=== PATIENT | female | born 1980 | race Caucasian/White ===

== ENCOUNTER 2021-09-27 03:25 | Inpatient (IN) | payer MEDICAID, OTHER, SELFPAY ==
[2021-09-27] VITALS (10 sets, daily range): BP systolic 100–125; BP diastolic 59–75; PULSE 52–78; RESP 16–18; TEMP 36.1–37.3; O2SAT 96–98; BMI 22.0
--- NOTE | ~2021-09-27 | CT_ITS ---
EXAMINATION: CT ABDOMEN AND PELVIS WITH CONTRAST CLINICAL INFORMATION: Lower abdominal pain. Nausea. COMPARISON: None TECHNIQUE: Multidetector volumetric images were obtained from the superior aspect of the liver through the pubic symphysis following administration 85 mL of Omnipaque 350 intravenous contrast. Sagittal and coronal reformatted images were obtained on the technologist's workstation. Oral contrast: No This CT examination was performed using dose optimization techniques as appropriate, variously including the following: *Automated exposure control *Adjustment of mA and/or kV according to patient size (this includes techniques or standardized protocols for targeted exams where dose is matched to indication/reason for exam; i.e. extremities or head) *Use of iterative reconstruction technique DLP: 467 mGy-cm FINDINGS: LUNG BASES: The visualized lung bases are unremarkable. LIVER, GALLBLADDER, AND BILIARY TREE: The liver is normal in size, shape, and attenuation. Subcentimeter cyst in the medial segment. A suspicious liver lesion or biliary ductal dilatation is present. There is focal thickening of the gallbladder fundus selective of adenomyomatosis. Cholelithiasis. PANCREAS: Unremarkable. SPLEEN: Unremarkable. ADRENAL GLANDS: Unremarkable. KIDNEYS AND URETERS: The kidneys are normal in size, shape, and attenuation. No hydronephrosis, hydroureter, or calculi seen. No perinephric stranding. BLADDER: Unremarkable. GASTROINTESTINAL TRACT: The appendix is dilated to 1.1 cm, fluid-filled and hyperemic, compatible with appendicitis. No evidence of rupture. Stomach, small and large bowel are unremarkable. ABDOMINAL WALL: No significant hernia is appreciated. LYMPH NODES: Normal. VASCULAR: Unremarkable. PELVIC VISCERA: IUD present within the uterus. Ovaries unremarkable. OSSEOUS STRUCTURES: No acute or suspicious osseous abnormalities. CT/CT abdomen pelvis w con IMPRESSION: * Acute uncomplicated appendicitis. * Cholelithiasis and adenomyomatosis. Fleischner guidelines were followed.
--- NOTE | 2021-09-27 03:40 | ED.ABDPAIN ---
HPI - Abdominal Pain General Chief Complaint: Abdominal Pain Stated Complaint: stomach pain Time Seen by Provider: 09/27/21 03:39 Source: patient Mode of arrival: ambulatory Limitations: no limitations History of Present Illness MD elicited complaint: abdominal pain Pertinent past history: none Onset (ago): hour(s) (5) Pain Consistency: constant Location: suprapubic Severity: moderate Quality: cramping Radiation: none Migration to: no migration Exacerbating factors: movement Relieving factors: nothing Associated symptoms: nausea Related Data Allergies Allergy/AdvReac Type Severity Reaction Status Date / Time No Known Allergies Allergy Verified 09/27/21 03:37 Review of Systems Review of Systems Constitutional : No Weight loss, No Fever, No Chills ENT/Mouth : No sore throat, No Rhinorrhea Eyes: No Swelling, No Redness Cardiovascular : No Chest Pain, No SOB, NoEdema Respiratory : No Cough, No Sputum, No Wheezing Gastrointestinal : Positive Nausea, no Vomiting, no Diarrhea, positive abdominal Pain, No Hematochezia, No Melena Genitourinary : No Dysuria, No Urinary Frequency, No Hematuria, No Urgency Musculoskeletal : No joint pain, No Myalgias, No Joint Swelling Skin : No Skin Lesions, No rash Neuro : No Weakness, No Numbness, No Dizziness, No Headache Psych : No Anxiety/Panic, No Depression Heme/Lymph: No Bruising, No Lymphadenopathy Endocrine : No Polyuria, No Polydipsia All other systems reviewed and are negative. [facility] Past Medical History Attestation statement: The following information was validated with the patient. Medical History No pertinent past medical history Social History Social History (Updated 09/27/21 @ 03:54 by Nadira Vance DO) Patient Tobacco Use Status: Never used Tobacco Advance Directives: No Advance Directives Information Provided: No Physical Exam ED Vital Signs: Vital Signs - 24 hr 09/27/21 03:35 Temperature 99.1 F Pulse Rate 78 Respiratory Rate 16 Blood Pressure 125/67 Pulse Oximetry 98 Oxygen Delivery Method Room Air BMI result Body Mass Index 22.0 Appearance: Alert. Oriented X3. No acute distress. Eyes: Pupils equal, round and reactive to light. ENT: Pharynx normal. Neck: Normal inspection. Neck supple. CVS: Normal heart rate and rhythm. Pulses normal. Respiratory: No respiratory distress. Breath sounds normal. Abdomen: Soft and moderate suprapubic ttp no rebound Skin: Skin warm and dry. Normal skin color. Normal skin turgor. Extremities: No lower extremity edema. No calf ttp Neuro: Oriented X 3. No motor deficit. No sensory deficit. Course Course Course Narrative: abdominal pain much better per patient + appendicitis normal VS, WBC less than 12k will start on zosyn and notify surgery - Dr. Kern to evaluate patient MDM - Abdominal Pain MDM Narrative Medical decision making narrative: 41 yo female no sig PMH does have IUD, had prior ovarian cyst but no rupture comes in with c/o lower abdominal pain that started out severe now is lingering she has some mild nausea but no other GI/ symptoms - at this time possible renal colic, ruptured ovarian cyst, appendicitis. Will obtain basic labs, hydrate, IV toradol for pain, CT scan for renal colic, appendicitis, ruptured cyst. Dispo per results and findings. Lab Data Result diagrams: 09/27/21 03:54 09/27/21 03:54 Labs: Lab Results 09/27/21 09/27/21 09/27/21 Range/Units 03:54 03:54 04:29 WBC 11.2 H (4.8-10.8) X10*3/uL RBC 4.14 L (4.20-5.50) X10*6/uL Hgb 12.5 (12.0-16.0) g/dl Hct 36.3 L (37.0-47.0) % MCV 87.7 (80.0-98.0) fL MCH 30.2 (27.0-33.0) pg MCHC 34.4 (31.0-35.0) g/dl RDW 12.4 (11.0-16.0) % Plt Count 237 (160-400) X10*3/uL MPV 8.8 L (9.4-12.3) fL Immature Gran % (Auto) 0.3 (0.0-0.4) % Neut % (Auto) 78.9 H (45-73) % Lymph % (Auto) 15.2 L (20-40) % [place] % (Auto) 5.2 (2-11) % Eos % (Auto) 0.2 (0-4) % Baso % (Auto) 0.2 (0-2) % Lymph # (Auto) 1.7 (1.2-4.9) X10*3/uL [place] # (Auto) 0.6 (0.1-1.2) X10*3/uL Eos # (Auto) 0.0 (0.0-0.4) X10*3/uL Baso # (Auto) 0.0 (0.0-0.2) X10*3/uL Abs Immat Gran (auto) 0.03 (0.00-0.03) X10*3/uL Absolute Neuts (auto) 8.8 H (2.0-8.3) x10*3/uL Absolute Nucleated RBC 0.000 (0.0-0.012) X10*3/uL Nucleated RBC % (auto) 0.0 (0.0-0.2) /100WBC Sodium 137 (135-145) mmol/L Potassium 3.7 (3.3-5.1) mmol/L Chloride 105 (96-108) mmol/L Carbon Dioxide 22 (22-29) mmol/L Anion Gap 14 (12-20) BUN 11 (9-16) mg/dL Creatinine 0.76 (0.5-1.4) mg/dL Estim Creat Clear Calc 90.3 Estimated GFR > 60 Random Glucose 114 (60-115) mg/dL Calcium 8.7 (8.4-10.2) mg/dL Magnesium 1.9 (1.6-2.6) mg/dL Total Bilirubin 0.6 (0.0-1.0) mg/dL Direct Bilirubin 0.3 (0.0-0.5) mg/dL AST 14 (5-31) U/L ALT 23 (0-31) U/L Alkaline Phosphatase 69 (39-117) U/L Total Protein 7.1 (6.5-8.0) g/dL Albumin 4.4 (3.5-5.0) g/dL Lipase 18 (8-78) U/L Urine Color Urine Appearance Urine pH (5.0-8.0) Ur Specific [place] (1.005-1.025) Urine Protein (NEG-TRACE) MG/DL Urine Glucose (UA) (NEG) MG/DL Urine Ketones (NEG) MG/DL Urine Blood (NEG) Urine Nitrite (NEG) Ur Leukocyte Esterase (NEG) Urine RBC (0) /HPF Urine WBC (0-4) /HPF Ur Squamous Epith Cells /LPF Urine Bacteria /LPF Urine Mucus /LPF Urine Test (NEGATIVE) COVID-19 (BIBI) Negative (Negative) COVID-19 Clin Com See Note 09/27/21 09/27/21 Range/Units 04:29 04:29 WBC (4.8-10.8) X10*3/uL RBC (4.20-5.50) X10*6/uL Hgb (12.0-16.0) g/dl Hct (37.0-47.0) % MCV (80.0-98.0) fL MCH (27.0-33.0) pg MCHC (31.0-35.0) g/dl RDW (11.0-16.0) % Plt Count (160-400) X10*3/uL MPV (9.4-12.3) fL Immature Gran % (Auto) (0.0-0.4) % Neut % (Auto) (45-73) % Lymph % (Auto) (20-40) % [place] % (Auto) (2-11) % Eos % (Auto) (0-4) % Baso % (Auto) (0-2) % Lymph # (Auto) (1.2-4.9) X10*3/uL [place] # (Auto) (0.1-1.2) X10*3/uL Eos # (Auto) (0.0-0.4) X10*3/uL Baso # (Auto) (0.0-0.2) X10*3/uL Abs Immat Gran (auto) (0.00-0.03) X10*3/uL Absolute Neuts (auto) (2.0-8.3) x10*3/uL Absolute Nucleated RBC (0.0-0.012) X10*3/uL Nucleated RBC % (auto) (0.0-0.2) /100WBC Sodium (135-145) mmol/L Potassium (3.3-5.1) mmol/L Chloride (96-108) mmol/L Carbon Dioxide (22-29) mmol/L Anion Gap (12-20) BUN (9-16) mg/dL Creatinine (0.5-1.4) mg/dL Estim Creat Clear Calc Estimated GFR Random Glucose (60-115) mg/dL Calcium (8.4-10.2) mg/dL Magnesium (1.6-2.6) mg/dL Total Bilirubin (0.0-1.0) mg/dL Direct Bilirubin (0.0-0.5) mg/dL AST (5-31) U/L ALT (0-31) U/L Alkaline Phosphatase (39-117) U/L Total Protein (6.5-8.0) g/dL Albumin (3.5-5.0) g/dL Lipase (8-78) U/L Urine Color YELLOW Urine Appearance HAZY Urine pH 6.5 (5.0-8.0) Ur Specific [place] 1.020 (1.005-1.025) Urine Protein NEG (NEG-TRACE) MG/DL Urine Glucose (UA) NEG (NEG) MG/DL Urine Ketones NEG (NEG) MG/DL Urine Blood TRACE (NEG) Urine Nitrite NEG (NEG) Ur Leukocyte Esterase NEG (NEG) Urine RBC 1-4 (0) /HPF Urine WBC 0 (0-4) /HPF Ur Squamous Epith Cells 2+ /LPF Urine Bacteria TRACE /LPF Urine Mucus 2+ /LPF Urine Test NEGATIVE (NEGATIVE) COVID-19 (BIBI) (Negative) COVID-19 Clin Com Discharge Plan Discharge Clinical Impression: Abdominal pain, Acute appendicitis Patient Disposition: Admitted As Inpatient
[2021-09-27] MEDS: Ketorolac Tromethamine 15 MG/ML VIAL 30 MG IVPUSH (04:07)
[2021-09-27] MEDS: ondansetron HCL 4 MG/2 ML VIAL IVPUSH (04:07)
[2021-09-27] MEDS: Lactated Ringers 1,000 ML 999 ML IV (04:08)
[2021-09-27 04:09] LABS: MANUAL DIFF FLAG NO
[2021-09-27 04:10] LABS: Basophils Percent Auto 0.2 % (0-2); Eosinophils Percent Auto 0.2 % (0-4); Hematocrit 36.3 % (37.0-47.0); Hemoglobin 12.5 g/dl (12.0-16.0); Imm Gran Abs Auto 0.03 X10*3/uL (0.00-0.03); Imm Gran Pct Auto 0.3 % (0.0-0.4); Lymphocytes Absolute Auto 1.7 X10*3/uL (1.2-4.9); Lymphocytes Percent Auto 15.2 % (20-40); Mean Corpuscular HGB Conc 34.4 g/dl (31.0-35.0); Mean Corpuscular Hemoglobin 30.2 pg (27.0-33.0); Mean Corpuscular Volume 87.7 fL (80.0-98.0); Mean Platelet Volume 8.8 fL (9.4-12.3); Monocytes Absolute Auto 0.6 X10*3/uL (0.1-1.2); Monocytes Percent Auto 5.2 % (2-11); Neutrophils Absolute Auto 8.8 x10*3/uL (2.0-8.3); Neutrophils Percent Auto 78.9 % (45-73); Platelet Count 237 X10*3/uL (160-400); Red Blood Count 4.14 X10*6/uL (4.20-5.50); Red Cell Distribution Width 12.4 % (11.0-16.0); White Blood Count 11.2 X10*3/uL (4.8-10.8)
[2021-09-27 04:29] LABS: Alanine Aminotransferase 23 U/L (0-31); Albumin Level 4.4 g/dL (3.5-5.0); Alkaline Phosphatase 69 U/L (39-117); Anion Gap 14 (12-20); Aspartate Amino Transferase 14 U/L (5-31); Bilirubin Direct 0.3 mg/dL (0.0-0.5); Bilirubin Total 0.6 mg/dL (0.0-1.0); Blood Urea Nitrogen 11 mg/dL (9-16); Calcium 8.7 mg/dL (8.4-10.2); Carbon Dioxide 22 mmol/L (22-29); Chloride 105 mmol/L (96-108); Creatinine Clr Calc Pharmacy 90.3; Estimated Glomerular Filt Rate > 60; Glucose Random 114 mg/dL (60-115); Lipase 18 U/L (8-78); Magnesium 1.9 mg/dL (1.6-2.6); Potassium 3.7 mmol/L (3.3-5.1); Sodium 137 mmol/L (135-145); Total Protein 7.1 g/dL (6.5-8.0)
[2021-09-27 04:43] LABS: Appearance Urine HAZY; Color Urine YELLOW; Glucose Urine UA NEG (NEG); Leukocyte Esterase Urine NEG (NEG); Nitrite Urine NEG (NEG); PH 6.5 (5.0-8.0); UACC Culture Trigger NO; Urine Blood TRACE (NEG); Urine Ketones NEG (NEG); Urine Protein NEG (NEG-TRACE)
[2021-09-27 04:44] LABS: UPreg QC Valid YES; Urine Pregnancy NEGATIVE (NEGATIVE)
[2021-09-27 04:51] LABS: Bacteria Urine TRACE /LPF; Mucus Urine 2+ /LPF; Squamous Epithelial Cell Urine 2+ /LPF; WBC Urine 0 /HPF (0-4)
[2021-09-27 04:57] LABS: COVID-19 Test Negative (Negative)
[2021-09-27] MEDS: iohexoL 350 MG/ML 100 ML INFUS..BTL 85 ML IV (05:29)
[2021-09-27] MEDS: Piperacillin Sodium/Tazobactam 3.375 GM in 0.9 % Sodium Chloride 50 ML IV (06:22)
[2021-09-27] MEDS: Lactated Ringers 1,000 ML 100 ML IVCONT (06:30)
--- NOTE | 2021-09-27 08:16 | PM.HPGS ---
History of Present Illness History of Present Illness Date of Service: 10/06/21 Chief complaint: stomach pain Narrative: Franny Barahona is a 41 year old female who came to the ED early this AM because of abdominal pain. She says this started around 8 o'clock last night. She says this has been on the lower abdomen, right more than the left. She denies vomitting but has had nausea. She denies similar previous episodes in the past. She says she still has the same pain now but better after she got IV pain meds. Review of Systems Constitutional: Constitutional: Denies chills and Denies fever(s) Cardiovascular: Cardiovascular: Denies chest pain, Denies dyspnea and Denies dyspnea on exertion Respiratory: Respiratory: Denies cough, Denies dyspnea and Denies dyspnea on exertion Gastrointestinal: Gastrointestinal: Denies hematochezia and Denies change in bowel habits Genitourinary: Genitourinary: Denies hematuria Musculoskeletal: Musculoskeletal: Denies back pain and Denies limited range of motion Neurologic: Denies focal weakness and Denies convulsions Psychiatric: Psychiatric: Denies depression and Denies mood swings [facility] Past Medical History Medical History No pertinent past medical history Social History Social History Household Members: Family and Children Housing: Apartment Do you presently have visiting nurse or other home services: No Patient Tobacco Use Status: Never used Tobacco service: No Current occupational status: unemployed Meds Allergies Allergy/AdvReac Type Severity Reaction Status Date / Time No Known Allergies Allergy Verified 09/27/21 03:37 Active Medications: Current Medications Lactated Ringer's (Lr) 1,000 mls @ 100 mls/hr IVCONT .Q10H THO Last Admin: 09/27/21 06:30 Dose: 100 mls/hr Physical Exam Vital Signs: Vital Signs: Last Vital Signs Temp 98.7 F 09/27/21 06:49 Pulse 52 09/27/21 06:49 Resp 17 09/27/21 06:49 BP 100/59 L 09/27/21 06:49 Pulse Ox 98 09/27/21 06:49 O2 Del Method 09/27/21 06:49 BMI result Body Mass Index 22.0 Const: General: comfortable and no acute distress Orientation/consciousness: patient oriented x3 Neck: Neck: Yes no lymphadenopathy Resp: Auscultation: clear to auscultation bilaterally Cardio: Rhythm: regular rhythm GI: Palpation (GI): Soft to palpation, Tenderness to palpation present (GI) (tender on lower abdomen, R> L) and no guarding Neuro: General: patient oriented x3 Results Results Labs: Short CBC 09/27/21 Range/Units 03:54 WBC 11.2 H (4.8-10.8) X10*3/uL Hgb 12.5 (12.0-16.0) g/dl Hct 36.3 L (37.0-47.0) % Plt Count 237 (160-400) X10*3/uL BMP 09/27/21 03:54 Sodium 137 Potassium 3.7 Chloride 105 Carbon Dioxide 22 BUN 11 Creatinine 0.76 Calcium 8.7 Liver Function 09/27/21 Range/Units 03:54 Total Bilirubin 0.6 (0.0-1.0) mg/dL Direct Bilirubin 0.3 (0.0-0.5) mg/dL AST 14 (5-31) U/L ALT 23 (0-31) U/L Alkaline Phosphatase 69 (39-117) U/L Albumin 4.4 (3.5-5.0) g/dL Urine 09/27/21 09/27/21 Range/Units 04:29 04:29 Urine Color YELLOW Urine Appearance HAZY Urine pH 6.5 (5.0-8.0) Ur Specific [place] 1.020 (1.005-1.025) Urine Protein NEG (NEG-TRACE) MG/DL Urine Glucose (UA) NEG (NEG) MG/DL Urine Test NEGATIVE (NEGATIVE) Additional studies: Laboratory Results WBC 11.2 X10*3/uL (4.8-10.8) H 09/27/21 03:54 RBC 4.14 X10*6/uL (4.20-5.50) L 09/27/21 03:54 Hgb 12.5 g/dl (12.0-16.0) 09/27/21 03:54 Hct 36.3 % (37.0-47.0) L 09/27/21 03:54 MCV 87.7 fL (80.0-98.0) 09/27/21 03:54 MCH 30.2 pg (27.0-33.0) 09/27/21 03:54 MCHC 34.4 g/dl (31.0-35.0) 09/27/21 03:54 RDW 12.4 % (11.0-16.0) 09/27/21 03:54 Plt Count 237 X10*3/uL (160-400) 09/27/21 03:54 MPV 8.8 fL (9.4-12.3) L 09/27/21 03:54 Immature Gran % (Auto) 0.3 % (0.0-0.4) 09/27/21 03:54 Neut % (Auto) 78.9 % (45-73) H 09/27/21 03:54 Lymph % (Auto) 15.2 % (20-40) L 09/27/21 03:54 [place] % (Auto) 5.2 % (2-11) 09/27/21 03:54 Eos % (Auto) 0.2 % (0-4) 09/27/21 03:54 Baso % (Auto) 0.2 % (0-2) 09/27/21 03:54 Lymph # (Auto) 1.7 X10*3/uL (1.2-4.9) 09/27/21 03:54 [place] # (Auto) 0.6 X10*3/uL (0.1-1.2) 09/27/21 03:54 Eos # (Auto) 0.0 X10*3/uL (0.0-0.4) 09/27/21 03:54 Baso # (Auto) 0.0 X10*3/uL (0.0-0.2) 09/27/21 03:54 Abs Immat Gran (auto) 0.03 X10*3/uL (0.00-0.03) 09/27/21 03:54 Absolute Neuts (auto) 8.8 x10*3/uL (2.0-8.3) H 09/27/21 03:54 Absolute Nucleated RBC 0.000 X10*3/uL (0.0-0.012) 09/27/21 03:54 Nucleated RBC % (auto) 0.0 /100WBC (0.0-0.2) 09/27/21 03:54 Sodium 137 mmol/L (135-145) 09/27/21 03:54 Potassium 3.7 mmol/L (3.3-5.1) 09/27/21 03:54 Chloride 105 mmol/L (96-108) 09/27/21 03:54 Carbon Dioxide 22 mmol/L (22-29) 09/27/21 03:54 Anion Gap 14 (12-20) 09/27/21 03:54 BUN 11 mg/dL (9-16) 09/27/21 03:54 Creatinine 0.76 mg/dL (0.5-1.4) 09/27/21 03:54 Estim Creat Clear Calc 90.3 09/27/21 03:54 Estimated GFR > 60 09/27/21 03:54 Random Glucose 114 mg/dL (60-115) 09/27/21 03:54 Calcium 8.7 mg/dL (8.4-10.2) 09/27/21 03:54 Magnesium 1.9 mg/dL (1.6-2.6) 09/27/21 03:54 Total Bilirubin 0.6 mg/dL (0.0-1.0) 09/27/21 03:54 Direct Bilirubin 0.3 mg/dL (0.0-0.5) 09/27/21 03:54 AST 14 U/L (5-31) 09/27/21 03:54 ALT 23 U/L (0-31) 09/27/21 03:54 Alkaline Phosphatase 69 U/L (39-117) 09/27/21 03:54 Total Protein 7.1 g/dL (6.5-8.0) 09/27/21 03:54 Albumin 4.4 g/dL (3.5-5.0) 09/27/21 03:54 Lipase 18 U/L (8-78) 09/27/21 03:54 Urine Color YELLOW 09/27/21 04:29 Urine Appearance HAZY 09/27/21 04:29 Urine pH 6.5 (5.0-8.0) 09/27/21 04:29 Ur Specific [place] 1.020 (1.005-1.025) 09/27/21 04:29 Urine Protein NEG MG/DL (NEG-TRACE) 09/27/21 04:29 Urine Glucose (UA) NEG MG/DL (NEG) 09/27/21 04:29 Urine Ketones NEG MG/DL (NEG) 09/27/21 04:29 Urine Blood TRACE (NEG) 09/27/21 04:29 Urine Nitrite NEG (NEG) 09/27/21 04:29 Ur Leukocyte Esterase NEG (NEG) 09/27/21 04:29 Urine RBC 1-4 /HPF (0) 09/27/21 04:29 Urine WBC 0 /HPF (0-4) 09/27/21 04:29 Ur Squamous Epith Cells 2+ /LPF 09/27/21 04:29 Urine Bacteria TRACE /LPF 09/27/21 04:29 Urine Mucus 2+ /LPF 09/27/21 04:29 Urine Test NEGATIVE (NEGATIVE) 09/27/21 04:29 COVID-19 (BIBI) Negative (Negative) 09/27/21 04:29 COVID-19 Clin Com See Note 09/27/21 04:29 Impressions Abdomen/Pelvis CT 09/27/21 05:40 IMPRESSION: * Acute uncomplicated appendicitis. * Cholelithiasis and adenomyomatosis. Fleischner guidelines were followed. Assessment and Plan (1) Acute appendicitis: Qualifiers: Acute appendicitis type: other Qualified Code(s): K35.890 - Other acute appendicitis without perforation or gangrene Status: Resolved Plan She has lower abdominal pain as described above. I have reviewed her CT scan with the radiologist. The appendix appears edematous and dilated consistent with acute appendicitis. I explained the the patient the option of proceeding with appendectomy. I explained the technique of laparoscopic appendectomy, possible conversion to open with laparotomy, and reviewed the risks including but not limited to bleeding, infections, injury to other organs, staple line leak, abscess formation, as well as the benefits and alternatives. She is aware of the option of antibiotic treatment only. She wants to proceed with appendectomy. She discussed this with her . Her [place] language is [place] Portoguese, but she says she understands [place] and was comfortable with the discussion. Quality Stroke Does the patient have a stroke diagnosis?: No VTE Prior VTE?: No VTE Risk Level:: Medical - low VTE Device Contraindication: N/A - Device Ordered VTE Drug Contraindication: Treatment Not Indicated Procedures Date of Service Date of Service: 09/27/21
--- NOTE | 2021-09-27 08:17 | PHA.MEDREC ---
Pharmacy Consult ? Medication Reconciliation Pharmacy has completed the medication reconciliation.
[2021-09-27] MEDS: 0.9 % Sodium Chloride 1,000 ML 100 ML IVCONT ×2 (08:45→11:42)
--- NOTE | 2021-09-27 09:05 | P.CONAN_ITS ---
HPI - Anesthesia Eval Consult details Narrative: acute appendicitis PMFSH Active Problems Active Problems: All Active Problems (Updated 09/27/21 @ 06:16 by Nadira Vance DO) Abdominal pain (Acute) Acute appendicitis (Acute) Past Medical History Medical History No pertinent past medical history Family History Family history of problems with anesthesia: No Surgical History History of Problems with Anesthesia: No Social History Social History Patient Tobacco Use Status: Never used Tobacco Advance Directives: No Advance Directives Information Provided: No Meds Allergies Allergy/AdvReac Type Severity Reaction Status Date / Time No Known Allergies Allergy Verified 09/27/21 03:37 Active Medications: Current Medications Lactated Ringer's (Lr) 1,000 mls @ 100 mls/hr IVCONT .Q10H [facility] Last Admin: 09/27/21 06:30 Dose: 100 mls/hr Sodium Chloride (Ns) 1,000 mls @ 100 mls/hr IVCONT .Q10H [facility] Last Admin: 09/27/21 08:45 Dose: 100 mls/hr Morphine Sulfate (Morphine Sulfate 4 Mg/Ml Cartridge) 3 mg IVPUSH Q3H PRN; Protocol PRN Reason: Pain, Severe (Pain Scale 7-10) Oxycodone HCl (Oxycodone Hcl Immed Release 5 Mg Tablet) 5 mg PO Q4H PRN PRN Reason: Pain, Moderate (Pain Scale 4-6 Sodium Chloride (0.9 % Sodium Chloride Flush 3 Ml Syringe) 3 ml IVFLUSH QSHIFT [facility] Home Medications Medication Instructions Recorded Confirmed Last Taken Type No Known Home Meds 09/27/21 09/27/21 Unknown History Exam Exam Date and Time: September 27, 2021 0905 Height,Weight and Vital Signs: Height 5 ft 6 in Weight 62 kg Last Vital Signs Temp 98.7 F 09/27/21 06:49 Pulse 61 09/27/21 08:54 Resp 16 09/27/21 08:54 BP 111/68 09/27/21 08:54 Pulse Ox 98 09/27/21 08:54 O2 Del Method 09/27/21 08:54 Pertinent Lab Results Pertinent Lab Results: Laboratory Tests 09/27/21 09/27/21 09/27/21 03:54 03:54 04:29 WBC 11.2 H RBC 4.14 L Hgb 12.5 Hct 36.3 L MCV 87.7 MCH 30.2 MCHC 34.4 RDW 12.4 Plt Count 237 MPV 8.8 L Immature Gran % (Auto) 0.3 Neut % (Auto) 78.9 H Lymph % (Auto) 15.2 L [place] % (Auto) 5.2 Eos % (Auto) 0.2 Baso % (Auto) 0.2 Lymph # (Auto) 1.7 [place] # (Auto) 0.6 Eos # (Auto) 0.0 Baso # (Auto) 0.0 Abs Immat Gran (auto) 0.03 Absolute Neuts (auto) 8.8 H Absolute Nucleated RBC 0.000 Nucleated RBC % (auto) 0.0 Sodium 137 Potassium 3.7 Chloride 105 Carbon Dioxide 22 Anion Gap 14 BUN 11 Creatinine 0.76 Estim Creat Clear Calc 90.3 Estimated GFR > 60 Random Glucose 114 Calcium 8.7 Magnesium 1.9 Total Bilirubin 0.6 Direct Bilirubin 0.3 AST 14 ALT 23 Alkaline Phosphatase 69 Total Protein 7.1 Albumin 4.4 Lipase 18 Urine Color Urine Appearance Urine pH Ur Specific [place] Urine Protein Urine Glucose (UA) Urine Ketones Urine Blood Urine Nitrite Ur Leukocyte Esterase Urine RBC Urine WBC Ur Squamous Epith Cells Urine Bacteria Urine Mucus Urine Test COVID-19 (BIBI) Negative COVID-19 Clin Com See Note 09/27/21 09/27/21 04:29 04:29 WBC RBC Hgb Hct MCV MCH MCHC RDW Plt Count MPV Immature Gran % (Auto) Neut % (Auto) Lymph % (Auto) [place] % (Auto) Eos % (Auto) Baso % (Auto) Lymph # (Auto) [place] # (Auto) Eos # (Auto) Baso # (Auto) Abs Immat Gran (auto) Absolute Neuts (auto) Absolute Nucleated RBC Nucleated RBC % (auto) Sodium Potassium Chloride Carbon Dioxide Anion Gap BUN Creatinine Estim Creat Clear Calc Estimated GFR Random Glucose Calcium Magnesium Total Bilirubin Direct Bilirubin AST ALT Alkaline Phosphatase Total Protein Albumin Lipase Urine Color YELLOW Urine Appearance HAZY Urine pH 6.5 Ur Specific [place] 1.020 Urine Protein NEG Urine Glucose (UA) NEG Urine Ketones NEG Urine Blood TRACE Urine Nitrite NEG Ur Leukocyte Esterase NEG Urine RBC 1-4 Urine WBC 0 Ur Squamous Epith Cells 2+ Urine Bacteria TRACE Urine Mucus 2+ Urine Test NEGATIVE COVID-19 (BIBI) COVID-19 Clin Com Airway Mallampati Class: I TM Dist: >3cm Neck ROM: Full Loose/Missing/Broken Teeth: No Heart: RRR Lungs: CTA Assessment and Plan Assessment Anesthesia Assessment: Anesthesia Plan Discussed and Chart Reviewed Final Anesthetic Review Family History of Problems with Anesthesia: No History of Problems with Anesthesia: No NPO: Yes ASA Class: I and Emergency Final Preanesthetic Review: No Changes in Pt Med Stat, Meds/Allgs Chart Reviewed, Consent Obtained/Reviewed and Anes Risks/Benef Reviewed Patient Risk: Low Procedure Risk: Intermediate Anesthetic Plan Anesthetic Plan: GA Disposition: Standard PACU
--- NOTE | 2021-09-27 09:23 | PC.NURSE ---
report given to sydni duval at surgery
--- NOTE | 2021-09-27 11:04 | P.OP_ITS ---
Operative Note Operative Note Date of Service: 09/27/21 Narrative: Preop diagnosis: acute appendicitis Postop diagnosis: Acute appendicitis, with purulent fluid surrounding the appendix and induration, erythema in the distal 2/3 appendix Procedure: Laparoscopic appendectomy Surgeon: Jaun Kern MD The patient is a 41-year-old female who has had right lower quadrant pain and tenderness since last night. She came to the ER in her CAT scan showed changes consistent with acute appendicitis. She understood the technique of laparoscopic appendectomy and possible open appendectomy. She was aware of the risks, benefits, and alternatives. She was brought to the operating room and placed supine under general anesthesia via endotracheal tube. A Leroy catheter was inserted. Was prepped and draped in the usual sterile fashion. A surgical time-out was done. The patient re ceived Cefotan 2 g IV preoperatively I made a short infraumbilical incision using blade 15. This was carried down through the full-thickness of the skin subcutaneous fat down to the fascia. The fascia was incised. The peritoneum was entered. Through this incision, a Radha port was introduced. Pneumoperitoneum was introduced to a pressure of 15 mm hg. From here on the rest of the procedure that was done under vision with the 10 mm flat laparoscope. With laparoscopic visualization, I proceeded to make an another short incision in the left lower quadrant using a blade 15. I inserted a 5/12 mm port through this incision. A 5 mm ports introduced a small incision in the suprapubic margin at the midline. The patient was then placed in a head-down and [id number] position. Graspers were placed through these working ports. I reflected the small bowel loops away from the right lower quadrant. By visualizing the cecum was able to identify the appendix. The appendix was markedly inflamed, swollen and indurated at the distal 3rd. This was also surrounded by some purulent fluid. I applied a grasper at the distal 3rd of the appendix to put this on stretch gently. Used a [place] dissector to gently dissect the base and created a mesenteric defect. I then positioned an Endo-CLEOPATRA 30 mm stapler across the base and this was fired to transect appendix. I used the LigaSure to divide the attached mesentery until was able to completely separate appendix. This was retrieved through an endobag through the left lower quadrant incision I reinserted all ports and re-insufflated. I irrigated the area of dissection and suction out the irrigant fluid I all 4 quadrants. There was no other pathology. There was evidence of any bowel injury. There was good hemostasis. I then proceeded to desufflate the port sites. I removed all ports under vision with the laparoscope. I removed the Radha port last. I closed the fascia of the umbilical incision with a [id number] Dexon 0 stitch. Skin closure was achieved on all incisions using Dexon 4-0 subcuticular running sutures. All incisions were infiltrated with Marcaine 0.5% for postop analgesia. Steri-Strips and dressings were applied. The procedure was completed. The patient tolerated procedure well. There were no complication noted. Initial and final counts of sponges and instruments were correct. Estimated blood loss was less than 10 cc. The patient was extubated without difficulty and transferred to the recovery room with stable vital signs.
[2021-09-27] MEDS: oxyCODONE HCl Immed Release 5 MG TABLET PO (13:28)
--- NOTE | 2021-09-27 15:03 | PM.EVENT ---
Event Note Date of Service: 09/27/21 Event Note: underwent laparoscopic appendectomy earlier seen on afternoon rounds says she is doing well good pain control tolerating liquids stable vital signs abdomen soft she wants to go home later today okay to start regular diet; if she tolerates, okay to DC home discharge instructions to patient called multiple times - he is not picking
--- NOTE | 2021-09-27 15:14 | MHC.CM.PN ---
Female 41 S/P lap appy. Sent to OR from ER. She lives with Family. Independent all functional mobility. DP home no services patient will arrange for transportation home.
--- NOTE | 2021-09-27 15:59 | MHC.CM.PN ---
Addendum entered by Christie Blackwell RN 09/27/21 16:04: PT HAS NOT YET OBTAINED A PCP AND HAS BEEN GIVEN PAMPHLET W/[facility] PROVIDERS. Original Note: EMR REVIEWED, PT ADMITTED W/STOMACH PAIN AND IS S/P LAP APPENDECTOMY, CM ME W/PT AND WHO REPORTS SHE IS DOING WELL AND PER HOSPITALIST ANTIC SHE WILL D/C HOME LATER TODAY, PT REPORTS SHE LIVES W/ AND 2 SONS, PT IS INDEP, DENIES USE OF DME/HOME SERVICES, PT VERIFIES PFIZER X2 WHILE STILL IN [place] AND RECENTLY MOVED TO THE [facility], PT VERIFIES SHE DOES HAVE INSURANCE AND COPY WAS MADE OF [employer] CARD, PT DECLINES TO COMPLETE A HCP AT THIS TIME. D/C PLAN: HOME LATER TODAY NO SERVICES W/ FOR TRANSPORT.
--- NOTE | 2021-09-29 12:31 | PM.DS ---
DS: Providers Provider Date of Service: 09/27/21 Date of admission: 09/27/21 08:24 Date of discharge: 09/27/21 Primary care physician: Unknown Physician DS: Diagnosis Discharge Diagnosis (1) Acute appendicitis: Status: Acute DS: Summary Hospital Course Hospital Course: Pt is a 41 year old female without significant PMHx who presented to the ED on 09/17/[address] of [address] scan showed acute uncomplicated appendicitis. Pt was brought to the OR and underwent laparoscopic appendectomy. She tolerated the procedure well. She was able to be discharged on the day of surgery, tolerating PO intake, ambulatory, and with pain controlled on PO medications. Time Spent with Patient Time attestation: Total time spent providing and/or coordinating discharge services: Discharge coordination time: Less than 30 minutes Quality: Safe Use of Opioids Does Pt have an Active Cancer Diagnosis on the Problem List?: No Quality: Stroke Does the patient have a stroke diagnosis?: No Physical Exam Vital Signs: Vital Signs: Last Vital Signs Temp 97.2 F 09/27/21 14:52 Pulse 74 09/27/21 14:52 Resp 18 09/27/21 14:52 BP 113/62 09/27/21 14:52 Pulse Ox 98 09/27/21 14:52 O2 Del Method 09/27/21 14:52 O2 Flow Rate 2 09/27/21 11:45 BMI result Body Mass Index 22.0 DS: Data Data Completed and Pending Completed studies during hospitalization [Text1]: Pending at discharge 09/27/21 10:49 Surgical [PTH] Routine Discharge Plan Discharge Patient Disposition: Home, Self-Care Discharge Diagnosis: Acute appendicitis Referrals: Jaun Kern MD [Physician] - 1 Week Physician,Unknown J [Primary Care Provider] - 1 Week Discharge Medications: New oxycodone-acetaminophen [Percocet] 5-325 mg tablet 1 tab PO Q4-6H PRN (Reason: pain) Qty: 30 0RF Rx Instructions: Partial Fill upon patient request. ibuprofen 600 mg tablet 600 mg PO Q6H PRN (Reason: pain) Qty: 30 0RF Discharge Orders: Discharge Order (Routine); Ordered 09/27/21 Ordered By: Jaun Kern Activity on Discharge: No heavy lifting Stand Alone Forms: Patient Portal Discharge page Activity Restrictions/Additional Instructions: If the incision area is tender, you may apply an ice pack for short intervals (No more than 20 minutes on, followed by at least 20 minutes off). Do not apply heat. Do not use creams, lotions, or topical antibiotics unless instructed to do so by your surgeon. These can cause infection or allergic reaction. OK to shower on the afternoon of 09/28/2021 OK to change dressings with Bandaids starting 09/28/2021 No lifting more than 20 lbs No strenuous activities Call the office for follow-up in 2 weeks - with Dr. Kern Call Your Doctor If: -Your temperature exceeds 101.5? F -You experience excessive pain or swelling -You have an unexpected reaction to medication -You have excessive bleeding -You experience continued vomiting/nausea -Your incision begins to separate -Your incision shows signs of infection such as increased redness, swelling, excessive pain, drainage (light blood or clear fluid is normal) or heat Care Plan Goals: Pain management Health Concerns: Management of pain postop Plan of Treatment: Oral as pain meds No lifting Follow-up in the office Assessment: Doing well postop Discharge Date/Time: 09/27/21 18:15
== END 2021-09-27 18:15 | disposition home or self-care (01) | DRG 234 ==
LOC: HO.ED 06:16 → HO.EDOVER 08:31 → HO.S3 10:27
PROVIDERS: Admitting Provider Surgery; Emergency Provider Emergency Medicine; Visit Provider Surgery
PROC: 0DTJ4ZZ Resection of Appendix, Percutaneous Endoscopic Approach (ICD-10-PCS; CPT 44970; principal; 2021-09-27 09:00)
DX: K35.30 Acute appendicitis with localized peritonitis, without perforation or gangrene (principal); Z20.822 Contact with and (suspected) exposure to COVID-19
CPT/HCPCS: 44970; 36415; 74177; 80048; 80076; 81001; 81025; 83690; 83735; 85025; 87635; 88304; 96365; 96366; 96375; 99219; 99285; J1100; J1885; J2250; J2405; J2543; J2550; J2795; Q9967